=== PATIENT | female | born 1965 | race Caucasian/White ===

== ENCOUNTER 2017-03-03 13:19 | Emergency (ER) | payer SELFPAY ==
[~2017-03-03] VITALS: Ht 152.4 cm; Wt 76.0 kg
[2017-03-03 13:22] VITALS: Ht 152.4 cm; Wt 76.0 kg
--- NOTE | 2017-03-03 14:10 | RADRPT ---
PROCEDURE: XR Chest. CLINICAL INDICATION: cough TECHNIQUE: Single frontal view of the chest was obtained. COMPARISON: None. FINDINGS: The heart and mediastinum are within normal limits. The lungs are clear. There is no significant pleural effusion or pneumothorax. IMPRESSION: No acute disease. RPTAT: EE Physician Lashon Date Time Electronically viewed and signed by Joe Stark Physician on 03/03/2017 14:10 RA/
[2017-03-03] MEDS ORDERED: BENZ100C70 PO (14:24)
--- NOTE | 2017-03-03 15:01 | ERD ---
ER Documentation Chief Complaint Date/Time DATE: 03/03/17 TIME: 14:55 Chief Complaint pt bib self with c/o cough, fever and sweating since this am HPI 51-year-old female coming in complaining of cough with chills for the last 2 days. Patient has tactile fevers at home. Denies nausea vomiting or diarrhea. Has taken Ivette-Livermore and Tylenol with no alleviation. Denies hemoptysis. Denies shortness of breath. Has no sick contacts. Medical history is FMF, NKDA ROS All systems reviewed and are negative except as per history of present illness. Medications Home Meds Active Scripts Benzonatate* (Tessalon Perle*) 100 Mg Capsule, 100 MG PO Q8H Y for COUGH, #30 CAP Prov:GERALDO HILL PA-C 03/03/17 Allergies Allergies: Coded Allergies: No Known Allergy (Unverified , 03/03/17) PMhx/Soc Medical and Surgical Hx: Unable to obtain Hx Alcohol Use: No Hx Substance Use: No Hx Tobacco Use: No Smoking Status: Never smoker Physical Exam Vitals Vital Signs Date Time Temp Pulse Resp B/P Pulse Ox O2 Delivery O2 Flow Rate FiO2 03/03/17 13:22 98.9 62 16 124/62 100 Physical Exam GENERAL: The patient is well-appearing, well-nourished, in no acute distress HEENT: Atraumatic. Conjunctivae are pink. Pupils equal, round, and reactive to light. There is no scleral icterus. Tympanic membranes clear bilaterally. Oropharynx clear. No nystagmus or photophobia. NECK: C-spine is soft and supple. There is no meningismus. There is no cervical lymphadenopathy. No JVD. No bruits. No goiter. CHEST: Clear to auscultation bilaterally. There are no rales, wheezes or rhonchi. HEART: Regular rate and rhythm. No murmurs, clicks, rubs or gallops. No S3 or S4. ABDOMEN:Soft, nontender and nondistended. Good bowel sounds. No rebound or guarding. No gross peritonitis. No gross organomegaly or masses. No Ly sign or McBurney point tenderness. Procedures/MDM DIAGNOSTIC IMAGING REPORT Patient: JARAD ESPINOZA : 1965 Age: 51 Sex: F MR #: [id number] [facility] #: [id number] DOS: 03/03/17 1341 Ordering MD: ERIKA HILL PA-C Location: [facility] Room/Bed: PROCEDURE: XR Chest. CLINICAL INDICATION: cough TECHNIQUE: Single frontal view of the chest was obtained. COMPARISON: None. FINDINGS: The heart and mediastinum are within normal limits. The lungs are clear. There is no significant pleural effusion or pneumothorax. IMPRESSION: No acute disease. MDM: 51-year-old female coming in complaining of cough. I have low suspicion for pneumonia as patient's x-rays within normal limits. Patient's vital signs are stable. I have low suspicion for PE. Patient is not complaining of shortness of breath, pleuritic chest pain, or hemoptysis. I have low suspicion for bacterial HEENT infection. I have low suspicion for TB. Patient's symptoms are likely associated with viral cough. I have low suspicion for cardiac emergency. Patient is not complaining of chest pain. Vitals stable and exam is non concerning. Patient will be discharged with cough medication and recommend for close follow-up with primary care doctor in 1-2 to days for close evaluation. Departure Diagnosis: Primary Impression: Cough Condition: Stable Patient Instructions: Cough, Chronic, Uncertain Cause, (Adult) Referrals: [facility] YOU HAVE RECEIVED A MEDICAL SCREENING EXAM AND THE RESULTS INDICATE THAT YOU DO NOT HAVE A CONDITION THAT REQUIRES URGENT TREATMENT IN THE EMERGENCY DEPARTMENT. FURTHER EVALUATION AND TREATMENT OF YOUR CONDITION CAN WAIT UNTIL YOU ARE SEEN IN YOUR DOCTORS OFFICE WITHIN THE NEXT 1-2 DAYS. IT IS YOUR RESPONSIBILITY TO MAKE AN APPOINTMENT FOR FOLOW-UP CARE. IF YOU HAVE A PRIMARY DOCTOR --you should call your primary doctor and schedule an appointment IF YOU DO NOT HAVE A PRIMARY DOCTOR YOU CAN CALL OUR PHYSICIAN REFERRAL HOTLINE AT IF YOU CAN NOT AFFORD TO SEE A PHYSICIAN YOU CAN CHOSE FROM THE FOLLOWING [facility] [address] [facility] [address] [facility] [address] [facility] [address] [facility] [address] [facility]. [facility] [address] Additional Instructions: FOLLOW UP WITH YOUR PRIMARY CARE PHYSICIAN TOMORROW.Return to this facility if you are not improving as expected. GERALDO HILL PA-C Mar 03, 2017 15:01
== END 2017-03-03 15:51 | disposition home or self-care (01) ==
LOC: FTE 13:19
DX: R05 Cough (principal)
CPT/HCPCS: 71010

== ENCOUNTER 2018-05-11 21:00 | Emergency (ER) | END 2018-05-11 23:06 | disposition home or self-care (01) ==

== ENCOUNTER 2019-01-31 20:50 | Emergency (ER) | payer OTHER ==
[~2019-01-31] VITALS: Ht 152.4 cm; Wt 81.3 kg
[~2019-01-31 20:50] MED LIST: BENZ-6 PO; CEPH-443 PO
[2019-01-31 20:53] VITALS: Ht 152.4 cm; Wt 81.3 kg
--- NOTE | 2019-01-31 22:52 | ERD ---
ER Documentation Chief Complaint Chief Complaint BUG BITE TO LEFT ANKLE X'S 5 DAYS HPI Patient is a 53 years old female who denies past medical history presenting to the clinic for bug bites on left lower extremity X 5 days. She reports being bitten by mosquito and admits to swelling of her left foot and ankle with pruritus. Patient states that she cannot stop herself from scratching the area and admits to some mild pain. She denies skin discoloration, pus drainage, fever, chills, night sweats. Patient denies take any OTC medication. Patient states that she is driving home. ROS All systems reviewed and are negative except as per history of present illness. Medications Home Meds Active Scripts Cephalexin* (Keflex*) 500 Mg Capsule, 500 MG PO QID for 7 Days, CAP Prov:HITESH HERRERA PA-C 05/11/18 Benzonatate* (Tessalon Perle*) 100 Mg Capsule, 100 MG PO Q8H PRN for COUGH, #30 CAP Prov:GERALDO HILL PA-C 03/03/17 Allergies Allergies: Coded Allergies: No Known Allergy (Unverified , 03/03/17) PMhx/Soc History of Surgery: No Anesthesia Reaction: No Hx Neurological Disorder: No Hx Respiratory Disorders: No Hx Cardiac Disorders: No Hx Psychiatric Problems: No Hx Miscellaneous Medical Probl: No Hx Alcohol Use: No Hx Substance Use: No Hx Tobacco Use: No FmHx Family History: No diabetes, No coronary disease, No other Physical Exam Vitals Vital Signs Date Temp Pulse Resp B/P (MAP) Pulse Ox O2 O2 Flow FiO2 Time Delivery Rate 01/31/19 97.8 88 18 131/84 100 20:53 (100) Physical Exam Const: No acute distress Head: Atraumatic Eyes: Normal Conjunctiva Resp: Clear to auscultation bilaterally Cardio: Regular rate and rhythm, no murmurs Abd: Soft, non tender, non distended. Normal bowel sounds Skin: Left foot and ankle swelling with multiple excoriation from excessive scratching. No skin perforation, erythema, induration, pus drainage. Back: No midline or flank tenderness Neur: Awake and alert Psych: Normal Mood and Affect Results 24 hrs Current Medications Medications Dose Sig/Felicity Start Time Status Last (Trade) Ordered Route PRN Stop Time Admin Dose Reason Admin 125 mg ONCE ONCE 01/31/19 Methylprednis IM 23:00 olone Sodium 01/31/19 23:01 Succinate (Solu-Medrol) Procedures/MDM Patient was seen and evaluated for left lower extremity bug bite with swelling due to inflammatory reaction without complication. No obvious signs of cellulitis. Patient was given Solu-Medrol 125 IM in the ED as patient is driving home. Patient stable ready for discharge. Follow-up with PCP. Patient will be discharged with hydroxyzine, hydrocortisone cream, and ibuprofen for mild pain. Patient was advised to take OTC Benadryl as needed. She was advised to avoid scratching.. Departure Diagnosis: Primary Impression: Mosquito bite Encounter type: initial encounter Qualified Codes: W57.XXXA - Bitten or stung by nonvenomous insect and other nonvenomous arthropods, initial encounter Condition: Stable Patient Instructions: Mosquito Bite Referrals: [facility] Additional Instructions: Patient advised to return to the ED immediately for new or worsening symptoms. Patient advised to follow up with primary care provider in the next 24-48 hours. Patient verbalized understanding and agrees with treatment plan and course of action. If patient has no primary care they may follow up with [facility] [place] [address] [place] [id number] or [facility] [address] [place] [address] or [facility] [address] [place] [address] DAVID LYON PA-C Jan 31, 2019 22:52
[2019-01-31] MEDS ORDERED: HYDR50TA15 PO (22:55)
[2019-01-31] MEDS ORDERED: HC.5O30 TOP (22:55)
[2019-01-31] MEDS ORDERED: IBUP800T48 PO (22:55)
[2019-01-31] MEDS ORDERED: METHYLPREDNISOLONE 125 MG INJ IM ONE (23:00)
[2019-01-31 23:29] VITALS: BP 126/79; PULSE 75; RESP 16
== END 2019-01-31 23:30 | disposition home or self-care (01) ==
LOC: FTE 20:50
DX: S80.862A Insect bite (nonvenomous), left lower leg, initial encounter (principal); S90.562A Insect bite (nonvenomous), left ankle, initial encounter; W57.XXXA Bitten or stung by nonvenomous insect and other nonvenomous arthropods, initial encounter; Y92.9 Unspecified place or not applicable
CPT/HCPCS: 96372; J2930; Z7502

== ENCOUNTER 2019-03-11 14:14 | Emergency (ER) | payer OTHER ==
[~2019-03-11] VITALS: Ht 152.4 cm; Wt 81.6 kg
[~2019-03-11 14:14] MED LIST changes: +HC.5O30 TOP; +HYDR50TA15 PO; +IBUP800T48 PO
[2019-03-11 14:25] VITALS: BP 123/78; PULSE 88; RESP 18; Ht 152.4 cm; Wt 81.6 kg
== END 2019-03-11 16:07 | disposition home or self-care (01) ==
LOC: FTE 14:14
DX: R30.0 Dysuria (principal)
CPT/HCPCS: 81003; 81025; Z7502; 99283